=== PATIENT | male | born 1990 | race Caucasian/White ===

== ENCOUNTER 2019-05-14 20:40 | Emergency (ER) | payer SELFPAY ==
--- NOTE | 2019-05-14 21:03 | ED Physician Documentation ---
General Adult - HISTORIAN Historian: patient - HPI Stated Complaint: possible spider bide Chief Complaint: General Adult Onset: days ago (3) Timing: still present Severity: moderate Further Comments: yes (Pt is a 28 yo male with a lesion on his R leg. Pt thinks it may be a spider bite. Pt has hx MRSA some years ago after getting a tattoo. Pt has low grade temp of 99.0 No n/v.) - ROS CONST: no problems EYES/ENT: none CVS/RESP: none GI/: none MS/SKIN/LYMPH: other (lesion on R leg) - PAST HX Past History: other (hx of episode MRSA) Allergies/Adverse Reactions: Allergies Allergy/AdvReac Type Severity Reaction Status Date / Time Latex, Natural Rubber Allergy Rash Verified 05/14/19 20:53 axe body soap AdvReac Rash Uncoded 07/01/15 13:26 Home Medications: Ambulatory Orders Medication Instructions Recorded Doxycycline [Vibramycin] 100 mg PO BID #20 capsule 05/14/19 - SOCIAL HX Smoking History: cigarettes - FAMILY HX Family History: No - VITAL SIGNS Vital Signs: Vital Signs Temp Pulse Resp BP Pulse Ox 99.3 F 93 H 15 134/71 98 05/14/19 20:45 05/14/19 20:45 05/14/19 20:45 05/14/19 20:45 05/14/19 20:45 - REVIEWED ASSESSMENTS Nursing Assessment Reviewed: Yes Vitals Reviewed: Yes Progress - Progress Progress: Rx Doxycycline 100 mg. Take one every 12 hours for 10 days. 1st dose in ER (1 RF, pt will refill if lesion not completely cleared at day 10 and continue until it is resolved for 48-72 hours.) Pt had flu vaccine earlier this week. General Adult Physical Exam - PHYSICAL EXAM GENERAL APPEARANCE: no distress EENT: pharynx normal NECK: normal inspection, supple RESPIRATORY: no resp distress, chest non-tender, breath sounds normal CVS: reg rate & rhythm, heart sounds normal BACK: normal inspection SKIN: other (firm, slightly raised erythematous lesion anterior R leg, with tenderness, increased warmth, 3 cm diameter) EXTREMITIES: normal range of motion, no evidence of injury NEURO: oriented X3, motor nml, sensation nml Discharge Clincal Impression: abscess R leg Prescriptions: Doxycycline [Vibramycin] 100 mg PO BID #20 capsule Referrals: Primary Doctor,No [Primary Care Provider] - Condition: Stable Disposition: 01 HOME, SELF-CARE Decision to Admit: NO Decision Time: 21:17
[2019-05-14] MEDS: DOXYCYCLINE 100 MG CAPSULE PO ONE (21:08)
[2019-05-14 21:24] VITALS: BP 152/81
== END 2019-05-14 21:15 | disposition home or self-care (01) ==
LOC: ED 20:40
DX: L02.415 Cutaneous abscess of right lower limb (principal); F17.210 Nicotine dependence, cigarettes, uncomplicated
CPT/HCPCS: 99283

== ENCOUNTER 2019-06-08 06:30 | Emergency (ER) | payer SELFPAY ==
[2019-06-08] MEDS ORDERED: ASPIRIN 81 MG CHEW TAB PO ONE (06:42)
[2019-06-08] MEDS ORDERED: MAG HYDROX/ALUMINUM HYD/SIMETH 30 ML, Lidocaine 2% Viscous 15 ML PO ONE ×2 (06:42)
--- NOTE | 2019-06-08 06:45 | ED Physician Documentation ---
Chest Pain - HISTORIAN Historian: patient - HPI Chief Complaint: Chest Pain Additional Information: 28 year old male presents with c/o chest pain; worsened with movement; reproducible; started around 2 a.m. this morning; has taken 2 Omeprazole with no relief; HTN untreated, obese; has not f/u with PCP; no n/v/ or diaphoresis. Denies any recent illness. Smokes tobacco 1/2-1 ppd. Denies drug use. Onset: hours Timing: gradual onset Duration: constant Last known Well Date: 06/08/19 Last Known Well Time: 02:00 Context: activity Severity: moderate Quality: sharp Chest Pain Radiation: epigastric Chest Pain Signs/Symptoms: denies: nausea, vomiting Worsened By: movement Relieved By: nothing - ROS CONST: none MS/LYMPH: none GI/: none. denies: vomiting, nausea EYES/ENT: none SKIN/ENDO: none NEURO/PSYCH: none - PAST HX NM risk factors: hypertension (was told a long time ago; never followed up) DVT/PE Risk Factors: none TAD/AAA risk factors: none Neuro deficit: none GI disease: none Lung disease: none Surgeries/Procedures: other (Tonsils, Adenoids, Tubes in ears) - SOCIAL HX Smoking History: less than 1 pack/day Alcohol Use: rarely Drug Use: none - FAMILY HX Family HX: none (Dad in/out of custodial; mom still alive-good health) - VITAL SIGNS Vital Signs: Vital Signs Temp Pulse Resp BP Pulse Ox 152/81 05/14/19 21:15 - REVIEWED ASSESSMENTS Nursing Assessment Reviewed: Yes Vitals Reviewed: Yes <Sindhu Buckner - Last Filed: 06/08/19 06:43> - VITAL SIGNS Vital Signs: Vital Signs Temp Pulse Resp BP Pulse Ox 98.1 F 57 L 16 177/112 94 06/08/19 06:31 06/08/19 07:12 06/08/19 06:31 06/08/19 06:31 06/08/19 07:12 <Bernie Barker - Last Filed: 06/08/19 08:09> - PAST HX Allergies/Adverse Reactions: Allergies Allergy/AdvReac Type Severity Reaction Status Date / Time Latex, Natural Rubber Allergy Rash Verified 05/14/19 20:53 axe body soap AdvReac Rash Uncoded 07/01/15 13:26 Home Medications: Ambulatory Orders Medication Instructions Recorded Doxycycline [Vibramycin] 100 mg PO BID #20 capsule 05/14/19 Lisinopril [Prinivil] 10 mg PO QD #30 tablet 06/08/19 Progress - EKG/XRAY/CT EKG: rhythm (NSR with sinus arrhythmia rate of 64) <Sindhu Buckner - Last Filed: 06/08/19 06:43> - Progress Progress: 0700 Assume care from JEN Manley 0723 BP 156/110. Back from Xray <Bernie Barker - Last Filed: 06/08/19 08:09> ED Results Lab/Radiology - Orders Orders: ED Orders Category Date Time Status Continuous EKG monitoring Q30M Care 06/08/19 06:42 Ordered Continuous Pulse Oximetry Q30M Care 06/08/19 06:[address] IV Lock 1T Care 06/08/19 06:42 Ordered CHEST 2VIEW [RAD] Stat Exams 06/08/19 Ordered CBC/PLATELET/DIFF Stat Lab 06/08/19 06:42 Ordered CKMB Stat Lab 06/08/19 06:42 Ordered CMP Stat Lab 06/08/19 06:42 Ordered CREATINE KINASE Stat Lab 06/08/19 06:42 Ordered TROPONIN I Stat Lab 06/08/19 06:42 Ordered Aspirin [Marcelino] Med 06/08/19 06:42 Once 324 mg PO NOW ONE Gi Cocktail Med 06/08/19 06:42 Ordered Mag Hydrox/Aluminum Hyd/Simeth [Mylanta] 30 ml Lidocaine 2% Viscous [Xylocaine 2% Viscous] 15 ml PO NOW EKG WITH COMPARISON Stat Ther 06/08/19 06:42 Ordered <Sindhu Buckner - Last Filed: 06/08/19 06:43> - Lab Results Lab Results: Lab Results 06/08/19 06/08/19 06:42 06:42 WBC 12.30 K/ul H K/ul (4.00-12.00) RBC 4.93 M/ul M/ul (3.90-5.20) Hgb 16.2 g/dL g/dL (12.0-18.0) Hct 48.2 % % (37.0-53.0) MCV 98.0 fl fl (80.0-100.0) MCH 32.8 pg pg (28.0-34.0) MCHC 33.6 g/dL g/dL (30.0-36.0) RDW 10.1 % L % (11.3-14.3) Plt Count 232 K/mm3 K/mm3 (130-400) Neut % (Auto) 72.1 % % (39.0-79.0) Lymph % (Auto) 17.8 % % (16.0-50.0) Delta % (Auto) 6.8 % % (0.0-11.0) Eos % (Auto) 2.5 % % (0.0-6.8) Baso % (Auto) 0.8 % % (0.0-1.5) Neut # (Auto) 8.9 # k/uL H # k/uL (1.4-7.7) Lymph # (Auto) 2.2 # k/uL # k/uL (0.6-4.0) Delta # (Auto) 0.8 # k/uL # k/uL (0.0-0.9) Eos # (Auto) 0.3 # k/uL # k/uL (0.0-0.6) Baso # (Auto) 0.1 # k/uL # k/uL (0.0-0.5) Sodium 137 mmol/L mmol/L (137-145) Potassium 4.1 mmol/L mmol/L (3.5-5.1) Chloride 98 mmol/L mmol/L (98-107) Carbon Dioxide 29 mmol/L mmol/L (22-30) Anion Gap 14.1 BUN 14 mg/dL mg/dL (9-20) Creatinine 0.90 mg/dL mg/dL (0.66-1.25) Estimated Creat Clear 186 Est GFR ( Amer) > 60 (60 - ) Est GFR (Non-Af Amer) > 60 (60 - ) Glucose 129 mg/dL H mg/dL (74-106) Calcium 10.0 mg/dL mg/dL (8.4-10.2) Total Bilirubin 0.4 mg/dL mg/dL (0.2-1.3) AST 43 U/L U/L (15-46) ALT 50 U/L U/L (0-50) Alkaline Phosphatase 84 U/L U/L (38-126) Creatine Kinase 150 U/L U/L (55-170) CK-MB (CK-2) Pending Troponin I Pending Total Protein 8.7 g/dL H g/dL (6.3-8.2) Albumin 4.8 g/dL g/dL (3.5-5.0) - Radiology Radiology Impressions: Report Submission Date: Jun 08, 2019 7:12:08 AM [facility] ATTORNEY Patient Study Name: SELENE LEONARD Date: Jun 08, 2019 6:56:08 AM [employer] ATTORNEY Modality Type: DX Gender: M Description: CHEST 2VIEW : 88 Institution: [facility] Physician: SINDHU BUCKNER Chest, PA and lateral History: Chest pain Findings: No infiltrate, effusion or pneumothorax is present. Heart size, mediastinum and pulmonary vascularity are normal. Impression: No active pulmonary disease. Electronically signed on Jun 08, 2019 7:12:08 AM COUNTY ATTORNEY by: Wesley Gracia - Orders Orders: ED Orders Category Date Time Status Continuous EKG monitoring Q30M Care 06/08/19 06:42 Active Continuous Pulse Oximetry Q30M Care 06/08/19 06:[address] IV Lock 1T Care 06/08/19 06:42 Active CHEST 2VIEW [RAD] Stat Exams 06/08/19 Completed CBC/PLATELET/DIFF Stat Lab 06/08/19 06:42 Completed CKMB Stat Lab 06/08/19 06:42 Results CMP Stat Lab 06/08/19 06:42 Results CREATINE KINASE Stat Lab 06/08/19 06:42 Results TROPONIN I Stat Lab 06/08/19 06:42 Results Aspirin [Marcelino] Med 06/08/19 06:42 Discontinued 324 mg PO NOW ONE Lisinopril [Prinivil] Med 06/08/19 07:14 Discontinued 10 mg PO NOW ONE Mag Hydrox/Aluminum Hyd/Simeth [Mylanta] 30 ml Med 06/08/19 06:42 Discontinued Lidocaine 2% Viscous [Xylocaine 2% Viscous] 15 ml PO NOW EKG WITH COMPARISON Stat Ther 06/08/19 06:42 Ordered <Bernie Barker - Last Filed: 06/08/19 08:09> Chest Pain Physical Exam - EXAM General Appearance: no acute distress, alert EENT: eye inspection normal, ENT inspection normal, pharynx normal, no signs of dehydration, ORALIA Neck: nml inspection, no carotid bruit. No: JVD present Respiratory: chest non-tender, nml breath sounds CVS: reg. rate & rhythm (has a sinus arrhythmia), no murmur, no gallop, pulses full, pulses equal Abdomen: soft, normal bowel sounds Skin: warm/dry, normal color Extremities: normal range of motion Neuro: oriented X3, CN's nml as tested, motor nml, sensation nml, mood/affect nml, cognition normal <Sindhu Buckner - Last Filed: 06/08/19 06:43> Discharge <Sindhu Buckner - Last Filed: 06/08/19 06:43> Decision to Admit: NO Date of Decison to Admit: 06/08/19 Decision Time: 08:09 <Bernie Barker - Last Filed: 06/08/19 08:09> Clincal Impression: Accelerated essential hypertension Sleep apnea Qualifiers: Sleep apnea type: unspecified type Qualified Code(s): G47.30 - Sleep apnea, unspecified Prescriptions: Lisinopril [Prinivil] 10 mg PO QD #30 tablet Referrals: Primary Doctor,No [Primary Care Provider] - 2 Days Additional Instructions: 1. Start Lisinopril tomorrow. 2. Start Prilosec (OTC). Take daily for heartburn/reflux 3. 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 Discuss referral for sleep study for probable sleep apnea 4. Return to ER for new or worsening symptoms Condition: Stable Disposition: 01 HOME, SELF-CARE
[2019-06-08 07:10] LABS: BASOPHILS % 0.8 % (0.0-1.5); NEUTROPHILS # 8.9 # k/uL (1.4-7.7)
[2019-06-08] MEDS ORDERED: LISINOPRIL 5 MG TABLET PO ONE (07:14)
[2019-06-08 07:16] VITALS: BP 177/112
--- NOTE | 2019-06-08 07:16 | Diagnostic Imaging Report ---
PATIENT MR#: [id number] PATIENT PATIENT NAME: SELENE LEONARD DATE OF : 1990 REFERRING PHYSICIAN: Sindhu Buckner EXAM DATE: 06/08/2019 ACCESSION NUMBER: [id number] EXAM DESCRIPTION: CHEST 2VIEW Chest, PA and lateral History: Chest pain Findings: No infiltrate, effusion or pneumothorax is present. Heart size, mediastinum and pulmonary v ascularity are normal. Impression: No active pulmonary disease. Read by: Dr. Wesley Gracia Transcribed by: Transcribed Date: Electronically signed by: Dr. Wesley Gracia Date signed: 06/08/2019 7:15:35 AM
[2019-06-08 07:20] LABS: eGFR (Non-African) > 60
[2019-06-08] MEDS ORDERED: KETOROLAC TROMETHAMINE 30 MG/1ML VIAL IV ONE (08:10)
[2019-06-08] MEDS ORDERED: PANTOPRAZOLE SODIUM 40 MG TABLET.DR PO ONE (08:10)
== END 2019-06-08 08:49 | disposition home or self-care (01) ==
LOC: ED 06:30
DX: G47.30 Sleep apnea, unspecified (principal)
CPT/HCPCS: 71046; 80053; 82550; 82553; 84484; 85025; 93005; 96374; 99284; J1885; A9270-GY; S1016